=== PATIENT | female | born 1960 | race Caucasian/White ===

== ENCOUNTER 2018-10-03 07:25 | Emergency (ER) | payer BC ==
[2018-10-03 07:30] VITALS: BP 142/91
--- NOTE | 2018-10-03 07:30 | ER Report ---
History and Physical Time Seen By MD: 07:27 HPI/ROS CHIEF COMPLAINT: Dental pain, right facial swelling HISTORY OF PRESENT ILLNESS: Patient is a 58-year-old female here with complaints of right lower dental pain, right-sided facial swelling starting today. Patient is concerned that she has a dental abscess prompting evaluation today. She has been taking Tylenol, ibuprofen without significant improvement in symptoms. Patient is afebrile, hemodynamically stable REVIEW OF SYSTEMS: Constitutional: No fever, no chills. Eyes: No discharge. ENT: Right lower dental tenderness without evidence of discrete abscess, right- sided facial swelling Skin: No rashes. Neurological: No headache. Cranial nerves intact Allergies: Coded Allergies: Penicillins (Verified Allergy, Mild, hives, 10/03/18) azithromycin (Verified Allergy, Mild, HIVES , 10/03/18) Home Meds Active Scripts Tramadol Hcl (TRAMADOL HCL) 50 Mg Tablet, 50 MG PO Q6H PRN for PAIN, #12 TAB 0 Refills Prov:JASS HENSON DO 10/03/18 Clindamycin Hcl (CLINDAMYCIN HCL) 150 Mg Capsule, 450 MG PO TID for 7 Days, #63 CAPSULE Prov:JASS HENSON DO 10/03/18 Constitutional Vital Sign - Last 24 Hours 10/03/18 07:30 Temp 99.0 Pulse 74 Resp 20 B/P (MAP) 142/91 Pulse Ox 93 Physical Exam General Appearance: The patient is alert, has no immediate need for airway protection and no signs of toxicity. Uncomfortable appearing Eyes: Pupils equal and round no pallor or injection. ENT, Mouth: Right-sided facial swelling, tenderness on examination of the right lower molar Neurological: No focal neurological deficits, cranial nerves intact Skin: Warm and dry, no rashes. DIFFERENTIAL DIAGNOSIS: After history and physical exam differential diagnosis was considered for dental abscess, cellulitis, gingivitis Medical Decision Making ED Course/Re-evaluation ED Course Patient is a 58-year-old female here with complaints of right lower dental pain consistent with dental abscess. An inferior alveolar block was performed using 0.5% bupivacaine approximately 4 mL. Patient was given a prescription for clindamycin and tramadol for outpatient treatment. Patient will follow-up with dentistry. Return precautions provided. Patient was stable at time of discharge. Decision to Disposition Date: Oct 03, 2018 Decision to Disposition Time: 08:14 Depart Departure Latest Vital Signs Vital Signs Date Time Temp Pulse Resp B/P (MAP) Pulse Ox O2 Delivery O2 Flow Rate FiO2 10/03/18 07:30 99.0 74 20 142/91 93 Impression: Primary Impression: Dental abscess Condition: Improved Disposition: HOME OR SELF-CARE New Scripts Tramadol Hcl (TRAMADOL HCL) 50 Mg Tablet 50 MG PO Q6H PRN for PAIN, #12 TAB 0 Refills Prov: JASS HENSON DO 10/03/18 Clindamycin Hcl (CLINDAMYCIN HCL) 150 Mg Capsule 450 MG PO TID for 7 Days, #63 CAPSULE Prov: JASS HENSON DO 10/03/18 Patient Instructions: Dental Abscess (ED) Additional Instructions: Please take clindamycin 450 mg 3 times daily for 7 days. Please follow-up with dentistry in the next 3-5 days. Intramuscular Toradol was administered. Please return promptly if you develop visual changes, fevers, difficulty swallowing, difficulty breathing, nausea, vomiting. JASS HENSON DO Oct 03, 2018 07:30
[2018-10-03] MEDS ORDERED: TRAM-420 PO (08:25)
[2018-10-03] MEDS ORDERED: KETOROLAC 60 MG/2 ML VIAL IM ONE (08:25)
[2018-10-03] MEDS ORDERED: CLIN-75 PO (08:25)
== END 2018-10-03 08:33 | disposition home or self-care (01) ==
LOC: ER 07:35
DX: K04.7 Periapical abscess without sinus (principal)
CPT/HCPCS: 96372; 99283; J1885